=== PATIENT | male | born 1990 | race African-American/Black ===

== ENCOUNTER 2020-03-26 01:27 | Emergency (ER) | payer MEDICAID ==
[~2020-03-26] VITALS: Ht 177.8 cm; Wt 79.0 kg
[2020-03-26] MEDS ORDERED: PREDNISONE 20MG TABLET PO ONE (02:00)
[2020-03-26 02:09] VITALS: BP 119/67
== END 2020-03-26 02:12 | disposition home or self-care (01) ==
LOC: ER 01:44
DX: B02.9 Zoster without complications (principal)
CPT/HCPCS: 99283; J7512

== ENCOUNTER 2020-04-05 00:29 | Emergency (ER) | payer MEDICAID ==
[~2020-04-05] VITALS: Ht 177.8 cm; Wt 59.3 kg
[2020-04-05 00:42] VITALS: BP 109/68
[2020-04-05] MEDS ORDERED: PENICILLIN G BENZATHINE 2,400,000 UNITS/4ML SYR IM ONE (02:00)
== END 2020-04-05 02:56 | disposition left against medical advice (07) ==
LOC: ER 00:29
DX: A53.0 Latent syphilis, unspecified as early or late (principal); R07.0 Pain in throat
CPT/HCPCS: 87070; 87430; 99283; J0561

== ENCOUNTER 2021-01-27 10:41 | Emergency (ER) | payer MEDICAID ==
[~2021-01-27] VITALS: Ht 177.8 cm; Wt 79.0 kg
[2021-01-27 10:42] VITALS: BP 118/62
[2021-01-27] MEDS ORDERED: BICT1TAB PO (10:46)
[2021-01-27] MEDS ORDERED: CEPH500T MT (11:48)
== END 2021-01-27 12:20 | disposition home or self-care (01) ==
LOC: ER 11:40
DX: S00.81XA Abrasion of other part of head, initial encounter (principal); L03.211 Cellulitis of face; Z79.899 Other long term (current) drug therapy; Z98.890 Other specified postprocedural states; W57.XXXA Bitten or stung by nonvenomous insect and other nonvenomous arthropods, initial encounter; Y93.89 Activity, other specified; Y92.89 Other specified places as the place of occurrence of the external cause; Y99.8 Other external cause status
CPT/HCPCS: 99281

== ENCOUNTER 2021-10-30 21:32 | Emergency (ER) | payer MEDICAID ==
[~2021-10-30 21:32] MED LIST: BICT1TAB PO; CEPH500T MT
== END 2021-10-31 04:42 | disposition left against medical advice (07) ==
LOC: ER 21:32
DX: Z53.21 Procedure and treatment not carried out due to patient leaving prior to being seen by health care provider (principal)